=== PATIENT | female | born 2000 | race Caucasian/White ===

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

== ENCOUNTER 2018-08-16 21:03 | Emergency (ER) | payer BC ==
[~2018-08-16] VITALS: Ht 162.6 cm; Wt 56.8 kg
[~2018-08-16 21:03] MED LIST: INDERAL 10MG10 MG PO; TAPAZOLE5 MG PO; ZYRTEC 10MG10 MG PO
[2018-08-16 21:08] VITALS: BP 132/91; PULSE 98; TEMP 98.5
== END 2018-08-16 22:23 | disposition left against medical advice (07) ==
LOC: COL.ER 21:03
DX: R05 Cough (principal)